=== PATIENT | male | born 1980 | race African-American/Black ===

== ENCOUNTER 2021-08-21 15:58 | Emergency (ER) | payer SELFPAY ==
[2021-08-21 16:31] LABS: #Lymphocytes 1.4 thou/uL (1.20-3.40); #Monocytes 0.4 thou/uL (0.11-0.59); #Neutrophils 1.7 thou/uL (1.40-6.50); %Eosinophils 1.3 % (0.0-10.0); %Lymphocytes 39.5 % (21.0-51.0); %Monocytes 10.5 % (0.0-10.0); %Neutrophils 47.7 % (42.0-75.0); Hemoglobin 13.6 g/dL (14.0-18.0); Mean Corpuscular Hemoglobin 26.6 pg (27.0-31.0); Mean Corpuscular Volume 85.8 fL (78.0-98.0); Mean Platelet Volume 6.4 fL (7.4-10.4); Platelet Count 288 thou/uL (130-400); RBC Distribution Width 12.1 % (11.5-14.5); Red Blood Cell (RBC) Count 5.13 mill/uL (4.70-6.10); White Blood Cell (WBC) Count 3.6 thou/uL (4.8-10.8)
[2021-08-21 16:52] LABS: ALT (SGPT) 22 U/L (8-55); AST (SGOT) 56 U/L (5-34); Alkaline Phosphatase 55 U/L (40-110); Anion Gap 13 mmol/L (10-20); BUN (Urea Nitrogen) 18 mg/dL (8.9-20.6); Bilirubin, Total 0.7 mg/dL (0.2-1.2); Calc. Creatinine Clearance 0 mL/min (70-130); Calcium 8.8 mg/dL (7.8-10.44); Carbon Dioxide 24 mmol/L (22-29); Chloride 105 mmol/L (98-107); Globulin 2.7 g/dL (2.4-3.5); Glucose 100 mg/dL (70-105); Potassium 4.6 mmol/L (3.5-5.1); Protein, Total 6.7 g/dL (6.0-8.3); Sodium 137 mmol/L (136-145)
[2021-08-21 18:48] LABS: Bilirubin Negative (Negative); Blood, Urine Negative (Negative); Clarity Clear (Clear); Glucose, Urine (Dipstick) Normal (Negative); Ketone, Urine Negative (Negative); Leukocyte Negative Leu/uL (Negative); Nitrite Negative (Negative); Protein, Urine (Dipstick) Negative (Neg-Trace); Specific Gravity, Urine 1.014 (1.002-1.036); Urobilinogen Normal mg/dL (Less than 2)
== END 2021-08-21 19:54 | disposition home or self-care (01) ==
LOC: ERS 15:58
DX: R10.31 Right lower quadrant pain (principal)
CPT/HCPCS: 36415; 74177; 80053; 81003; 83690; 85025

== ENCOUNTER 2021-09-07 23:27 | Emergency (ER) | payer SELFPAY ==
[2021-09-08] MEDS ORDERED: HYDROcodone/Acetaminophen 10/325 mg Tablet ONE (00:45)
[2021-09-08] MEDS ORDERED: Bacitracin 1 PK ONE (00:48)
== END 2021-09-08 01:03 | disposition home or self-care (01) ==
LOC: ERS 23:27
DX: S92.324A Nondisplaced fracture of second metatarsal bone, right foot, initial encounter for closed fracture (principal); W19.XXXA Unspecified fall, initial encounter
CPT/HCPCS: 28475

== ENCOUNTER 2021-09-14 11:31 | Emergency (ER) | payer SELFPAY | END 2021-09-14 13:33 | disposition home or self-care (01) | LOC: ERS 11:31 | DX: S92.331D Displaced fracture of third metatarsal bone, right foot, subsequent encounter for fracture with routine healing (principal); X58.XXXD Exposure to other specified factors, subsequent encounter | CPT/HCPCS: 29515 ==

== ENCOUNTER 2021-10-05 12:49 | Emergency (ER) | payer SELFPAY ==
[2021-10-05] MEDS ORDERED: Ketorolac Tromethamine 30 MG/ML VIAL ONE (14:43)
== END 2021-10-05 14:48 | disposition home or self-care (01) ==
LOC: ERS 12:49
DX: M54.10 Radiculopathy, site unspecified (principal); F17.290 Nicotine dependence, other tobacco product, uncomplicated
CPT/HCPCS: 96372; 99283; J1885

== ENCOUNTER 2021-10-15 21:00 | Emergency (ER) | payer SELFPAY | END 2021-10-15 21:38 | disposition home or self-care (01) | LOC: ERS 21:00 | DX: M54.10 Radiculopathy, site unspecified (principal); L74.0 Miliaria rubra | CPT/HCPCS: 99283 ==

== ENCOUNTER 2022-06-04 20:29 | Emergency (ER) | payer SELFPAY ==
[2022-06-04] MEDS ORDERED: Bacitracin 1 PK ONE (22:00)
[2022-06-04] MEDS ORDERED: Boostrix 0.5 ML (Tdap) VIAL (>/=7 yrs of age) ONE (22:00)
== END 2022-06-04 22:21 | disposition home or self-care (01) ==
LOC: ERS 20:29
DX: S30.811A Abrasion of abdominal wall, initial encounter (principal); S20.319A Abrasion of unspecified front wall of thorax, initial encounter; Y04.2XXA Assault by strike against or bumped into by another person, initial encounter
CPT/HCPCS: 90471; 90715

== ENCOUNTER 2022-11-18 20:21 | Emergency (ER) | payer SELFPAY ==
[2022-11-18] MEDS ORDERED: Lidocaine 1% PF 5 ML VIAL ONE (23:56)
[2022-11-18] MEDS ORDERED: cefTRIAXone (ROCEPHIN) 500 MG VIAL ONE (23:56)
[2022-11-18] MEDS ORDERED: Doxycycline 100 MG CAP ONE (23:56)
[2022-11-19 10:47] LABS: Chlam.trachomatis by PCR,Urine Not Detected (NotDetected); GC N.gonorrhoeae PCR,UrineVOID Not Detected (NotDetected)
== END 2022-11-19 00:32 | disposition home or self-care (01) ==
LOC: ERS 20:21
DX: Z72.51 High risk heterosexual behavior (principal); F17.210 Nicotine dependence, cigarettes, uncomplicated
CPT/HCPCS: 87491; 87591; 96372; 99283; J0696

== ENCOUNTER 2023-03-04 13:17 | Emergency (ER) | payer SELFPAY | END 2023-03-04 14:47 | disposition left against medical advice (07) | LOC: ERS 13:17 | DX: Z53.21 Procedure and treatment not carried out due to patient leaving prior to being seen by health care provider (principal) ==

== ENCOUNTER 2023-03-07 21:26 | Emergency (ER) | payer SELFPAY ==
[2023-03-07] MEDS ORDERED: predniSONE 20 MG TAB ONE (22:00)
[2023-03-07 23:22] LABS: SARS-CoV-2 NAA Rapid Test Not Detected (NotDetected)
== END 2023-03-07 23:35 | disposition home or self-care (01) ==
LOC: ERS 21:26
DX: J02.9 Acute pharyngitis, unspecified (principal); F17.210 Nicotine dependence, cigarettes, uncomplicated; Z20.822 Contact with and (suspected) exposure to COVID-19
CPT/HCPCS: 87081; 87430; 99283; J7512

== ENCOUNTER 2023-05-03 11:14 | Emergency (ER) | payer SELFPAY ==
[2023-05-03 13:23] LABS: SARS-CoV-2 NAA Rapid Test Not Detected (NotDetected)
== END 2023-05-03 13:43 | disposition home or self-care (01) ==
LOC: ERS 11:14
DX: J06.9 Acute upper respiratory infection, unspecified (principal); F17.290 Nicotine dependence, other tobacco product, uncomplicated; Z20.822 Contact with and (suspected) exposure to COVID-19
CPT/HCPCS: 99283

== ENCOUNTER 2023-05-07 23:34 | Emergency (ER) | payer SELFPAY ==
[2023-05-08 00:32] LABS: Bacteria/HPF None Seen HPF (None Seen); Bilirubin Negative (Negative); Blood, Urine Negative (Negative); CAUTI Indications for Culture Dysuria,urgency,freq; Clarity Clear (Clear); Glucose, Urine (Dipstick) Normal (Negative); Ketone, Urine Negative (Negative); Leukocyte 25 Leu/uL (Negative); Nitrite Negative (Negative); Protein, Urine (Dipstick) Negative (Neg-Trace); RBC/HPF None Seen HPF (0-3); Specific Gravity, Urine 1.016 (1.002-1.036); Squamous Epithelial 0-3 HPF (0-3); Urobilinogen Normal mg/dL (Less than 2); WBC/HPF 0-3 HPF (0-3)
[2023-05-08 00:38] LABS: Urine Culture Reflex No No
[2023-05-08 12:43] LABS: Chlam.trachomatis by PCR,Urine Not Detected (NotDetected); GC N.gonorrhoeae PCR,UrineVOID Not Detected (NotDetected)
== END 2023-05-08 01:17 | disposition home or self-care (01) ==
LOC: ERS 23:34
DX: Z20.2 Contact with and (suspected) exposure to infections with a predominantly sexual mode of transmission (principal); F17.210 Nicotine dependence, cigarettes, uncomplicated; F17.290 Nicotine dependence, other tobacco product, uncomplicated
CPT/HCPCS: 81001; 87491; 87591; 99283

== ENCOUNTER 2025-01-25 01:56 | Emergency (ER) | payer OTHER, SELFPAY ==
[2025-01-25] MEDS ORDERED: Ketorolac Tromethamine 30 MG (1 mL) VIAL ONE (02:49)
== END 2025-01-25 03:10 | disposition home or self-care (01) ==
LOC: ERS 01:56
DX: L98.9 Disorder of the skin and subcutaneous tissue, unspecified (principal); M54.12 Radiculopathy, cervical region; F17.210 Nicotine dependence, cigarettes, uncomplicated
CPT/HCPCS: 96372; 99283; J1885